=== PATIENT | female | born 1985 | race Caucasian/White ===

== ENCOUNTER 2017-03-24 08:23 | Outpatient (CLI) | payer OTHER ==
[2017-03-24 09:03] VITALS: BP 113/67
[2017-03-24 10:10] LABS: ADD MIUA? YES; BILIRUBIN NEGATIVE; BLOOD NEGATIVE; COLOR AMBER ((YELLOW)); GLUCOSE (STRIP) NEGATIVE; KETONES NEGATIVE; LEUKOCYTES MODERATE; NITRITE NEGATIVE; PROTEIN (STRIP) NEGATIVE; SPECIFIC GRAVITY 1.024 (1.000-1.030); UROBILINOGEN 0.2 MG/DL (0.2-1.0)
[2017-03-24 10:18] LABS: BACTERIA RARE /HPF; BUDDING YEAST 1+; EPITHELIAL CELLS 4+ /HPF; MUCUS 2+ /LPF; RED BLOOD CELLS 0-5 /HPF (0-5); UCUL ADDED? YES; WHITE BLOOD CELLS 30-40 /HPF (0-5)
[2017-03-24 10:25] LABS: AMPHETAMINE NEGATIVE (500 ng/mL); BARBITURATES NEGATIVE (200 ng/mL); BENZODIAZEPINES NEGATIVE (150 ng/mL); COCAINE NEGATIVE (150 ng/mL); INTERNAL CONTROLS VALID? YES; METHADONE NEGATIVE (200 ng/mL); METHAMPHETAMINE NEGATIVE (500 ng/mL); OPIATES (MORPHINE) NEGATIVE (100 ng/mL); OXYCODONE NEGATIVE (100 ng/mL); PHENCYCLIDINE NEGATIVE (25 ng/mL); PROPOXYPHENE NEGATIVE (300 ng/mL); THC CANNABINOIDS NEGATIVE (50 ng/mL); TRICYCLIC ANTIDEPRESSANTS NEGATIVE (300 ng/mL)
[2017-03-24 22:15] LABS: CANDIDA DNA PROBE NEGATIVE
[2017-03-24 22:16] LABS: GARDNERELLA DNA PROBE POSITIVE; INTERNAL CONTROL VALID? YES
== END 2017-03-24 12:30 | disposition home or self-care (01) ==
LOC: EME 08:23 → EDSTATUS 08:34 → LDRP-OP 08:41 → 2WEST 08:44
PROVIDERS: Advanced Practice Midwife
DX: O26.892 Other specified pregnancy related conditions, second trimester (principal); R10.30 Lower abdominal pain, unspecified; O99.512 Diseases of the respiratory system complicating pregnancy, second trimester; J45.909 Unspecified asthma, uncomplicated; O99.342 Other mental disorders complicating pregnancy, second trimester; F41.9 Anxiety disorder, unspecified; Z3A.21 21 weeks gestation of pregnancy
CPT/HCPCS: 81003; 87086; 87480; 87510; 87660; G0378; J7120

== ENCOUNTER 2017-06-21 15:11 | Emergency (ER) | payer OTHER ==
[~2017-06-21] VITALS: Ht 170.2 cm; Wt 71.8 kg
[2017-06-21 15:44] LABS: HEMOGLOBIN 11.8 G/DL (11.9-15.5); MCH 27.8 PG (29.0-34.0); MCHC 32.8 G/DL (30.0-36.0); MCV 84.7 FL (83-99); PLATELET COUNT 160 K/uL (156-360); RBC DIS.WIDTH-CV 12.6 % (11.8-14.6); RED BLOOD COUNT 4.25 M/uL (3.80-5.20); WHITE BLOOD COUNT 8.6 K/uL (4.1-10.2)
[2017-06-21 16:05] LABS: ALBUMIN 3.5 G/DL (3.2-4.8); CHLORIDE 106 MEQ/L (99-109); POTASSIUM 3.9 MEQ/L (3.7-5.4); SODIUM 137 MEQ/L (136-147); TOTAL BILIRUBIN 0.7 MG/DL (0.0-1.0)
[2017-06-21 16:11] LABS: ALKALINE PHOSPHATASE 133 IU/L (3-129); ALT (GPT) 9 IU/L (3-49); AST (GOT) 17 IU/L (2-34); CREATININE 0.5 MG/DL (0.6-1.3); GFR ESTIMATE (CALCULATED) > 59 mL/min/; GLUCOSE 88 mg/dL (70-99); TOTAL PROTEIN 6.3 G/DL (6.4-8.3); UREA NITROGEN (BUN) 6 mg/dL (9-23)
[2017-06-21 16:32] LABS: QUANTITATIVE HCG 35313.5 MIU/ML
[2017-06-21 18:17] LABS: LIPASE 7 U/L (1.0-51.0)
[2017-06-21] MEDS ORDERED: ZOFRAN4 MG SL (19:32)
[2017-06-21 20:04] VITALS: BP 102/90
== END 2017-06-21 20:05 | disposition home or self-care (01) ==
LOC: EME 15:11
DX: O21.2 Late vomiting of pregnancy (principal); O26.893 Other specified pregnancy related conditions, third trimester; R11.0 Nausea; Z3A.35 35 weeks gestation of pregnancy
CPT/HCPCS: 80053; 81003; 83690; 84702; 85027; 99281; 99284

== ENCOUNTER 2017-07-07 08:36 | Outpatient (CLI) | payer OTHER ==
[~2017-07-07] VITALS: Ht 165.1 cm; Wt 74.1 kg
[~2017-07-07 08:36] MED LIST: ZOFRAN4 MG SL
[2017-07-07 09:20] LABS: BASOPHIL (%) 0.2 % (0-1); EOSINOPHIL (%) 1.1 % (0-5); EOSINOPHIL COUNT 0.1 K/uL (0-0.3); HEMATOCRIT 30.5 % (36.0-46.0); HEMOGLOBIN 9.9 G/DL (11.9-15.5); IMMATURE GRANULOCYTE (%) 0.5 % (0.0-0.7); LYMPHOCYTE COUNT 0.7 K/uL (1.0-2.8); MCH 26.6 PG (29.0-34.0); MCHC 32.5 G/DL (30.0-36.0); MONOCYTE (%) 3.8 % (3-12); MONOCYTE COUNT 0.2 K/uL (0-0.8); NEUTROPHIL (%) 82.4 % (45-76); PLATELET COUNT 149 K/uL (156-360); RBC DIS.WIDTH-SD 39.2 % (39-53); RED BLOOD COUNT 3.72 M/uL (3.80-5.20); WHITE BLOOD COUNT 6.1 K/uL (4.1-10.2)
[2017-07-07 09:36] LABS: CHLORIDE 109 mEq/L (99-109); POTASSIUM 3.3 mEq/L (3.7-5.4); SODIUM 140 mEq/L (136-147)
[2017-07-07 09:38] LABS: GLUCOSE 91 mg/dL (70-99)
[2017-07-07 09:42] LABS: CREATININE 0.6 mg/dL (0.6-1.3); GFR ESTIMATE (CALCULATED) > 59 mL/min/; UREA NITROGEN (BUN) 6 mg/dL (9-23)
[2017-07-07 11:03] LABS: APPEARANCE CLOUDY ((CLEAR)); BILIRUBIN NEGATIVE; BLOOD NEGATIVE; COLOR YELLOW ((YELLOW)); GLUCOSE (STRIP) NEGATIVE; KETONES NEGATIVE; LEUKOCYTES LARGE; NITRITE NEGATIVE; PROTEIN (STRIP) 30; SPECIFIC GRAVITY 1.021 (1.000-1.030); UROBILINOGEN 0.2 MG/DL (0.2-1.0)
[2017-07-07 11:14] LABS: BACTERIA RARE /HPF; CALCIUM OXALATE CRYSTALS 3+ /HPF; EPITHELIAL CELLS 2+ /HPF; HYALINE CASTS 0-5 /LPF; MUCUS 1+ /LPF; RED BLOOD CELLS 0-5 /HPF (0-5); UCUL ADDED? YES; WHITE BLOOD CELLS 20-30 /HPF (0-5)
[2017-07-07] MEDS ORDERED: MACROBID100 MG PO (11:45)
[2017-07-07] MEDS ORDERED: ZOFRAN4 MG PO (11:45)
[2017-07-07 12:17] VITALS: BP 113/65
[2017-07-07] MEDS ORDERED: COMBIVENT RESPIM4 GM IH (12:29)
[2017-07-07] MEDS ORDERED: VENTOLIN HFA18 GM IH (12:30)
[2017-07-07] MEDS ORDERED: EXPECTA PRENAT1 EACH PO (12:30)
[2017-07-07] MEDS ORDERED: ATARAX,VISTARIL50 MG PO (12:32)
[2017-07-07 18:09] LABS: CANDIDA DNA PROBE POSITIVE; GARDNERELLA DNA PROBE NEGATIVE; TRICHOMONAS DNA PROBE NEGATIVE
== END 2017-07-07 15:13 | disposition home or self-care (01) ==
LOC: LDRP-OP 08:36 → EME 08:36 → EDSTATUS 12:12 → 2WEST 12:14
PROVIDERS: Advanced Practice Midwife; Emergency Medicine
DX: O47.03 False labor before 37 completed weeks of gestation, third trimester (principal); O99.283 Endocrine, nutritional and metabolic diseases complicating pregnancy, third trimester; E87.6 Hypokalemia; O23.43 Unspecified infection of urinary tract in pregnancy, third trimester; O99.513 Diseases of the respiratory system complicating pregnancy, third trimester; J45.909 Unspecified asthma, uncomplicated; O99.343 Other mental disorders complicating pregnancy, third trimester; F41.9 Anxiety disorder, unspecified; Z3A.36 36 weeks gestation of pregnancy
CPT/HCPCS: 59025; 80048; 81003; 85025; 87086; 87480; 87510; 87660; G0378; J2405; J7030; J7120

== ENCOUNTER 2017-07-19 20:59 | Outpatient (CLI) | payer OTHER ==
[~2017-07-19] VITALS: Ht 165.1 cm; Wt 75.0 kg
[~2017-07-19 20:59] MED LIST changes: +ATARAX,VISTARIL50 MG PO; +COMBIVENT RESPIM4 GM IH; +EXPECTA PRENAT1 EACH PO; +MACROBID100 MG PO; +VENTOLIN HFA18 GM IH; +ZOFRAN4 MG PO
[2017-07-19 21:18] VITALS: BP 128/76
[2017-07-19 23:07] VITALS: BP 145/74
== END 2017-07-20 00:10 | disposition home or self-care (01) ==
LOC: LDRP-OP → 2WEST 21:00 → LDRP-OP 08-30 12:01
DX: O47.1 False labor at or after 37 completed weeks of gestation (principal); O99.343 Other mental disorders complicating pregnancy, third trimester; F41.1 Generalized anxiety disorder; Z3A.39 39 weeks gestation of pregnancy
CPT/HCPCS: 59025; G0378

== ENCOUNTER 2017-07-23 05:31 | Inpatient (IN) | payer OTHER ==
[~2017-07-23] VITALS: Ht 162.6 cm; Wt 76.2 kg
[2017-07-23] VITALS (21 sets, daily range): BP systolic 92–139; BP diastolic 51–80
[2017-07-23 09:45] LABS: BASOPHIL (%) 0.2 % (0-1); EOSINOPHIL (%) 0.4 % (0-5); HEMATOCRIT 32.4 % (36.0-46.0); HEMOGLOBIN 10.2 G/DL (11.9-15.5); IMMATURE GRANULOCYTE (%) 0.4 % (0.0-0.7); LYMPHOCYTE (%) 15.8 % (15-42); LYMPHOCYTE COUNT 0.9 K/uL (1.0-2.8); MCHC 31.5 G/DL (30.0-36.0); MCV 82.4 FL (83-99); MONOCYTE (%) 3.9 % (3-12); MONOCYTE COUNT 0.2 K/uL (0-0.8); NEUTROPHIL (%) 79.3 % (45-76); NEUTROPHIL COUNT 4.5 K/uL (1.8-6.4); PLATELET COUNT 166 K/uL (156-360); RBC DIS.WIDTH-CV 14.2 % (11.8-14.6); RBC DIS.WIDTH-SD 41.6 % (39-53); RED BLOOD COUNT 3.93 M/uL (3.80-5.20); WHITE BLOOD COUNT 5.6 K/uL (4.1-10.2)
[2017-07-23 10:15] LABS: ALBUMIN 3.5 G/DL (3.2-4.8); CHLORIDE 106 MEQ/L (99-109); POTASSIUM 3.5 MEQ/L (3.7-5.4); SODIUM 139 MEQ/L (136-147); TOTAL BILIRUBIN 0.5 MG/DL (0.0-1.0)
[2017-07-23 10:20] LABS: ALKALINE PHOSPHATASE 142 IU/L (3-129); ALT (GPT) 7 IU/L (3-49); AST (GOT) 15 IU/L (2-34); CREATININE 0.6 MG/DL (0.6-1.3); GFR ESTIMATE (CALCULATED) > 59 mL/min/; GLUCOSE 94 mg/dL (70-99); TOTAL PROTEIN 5.7 G/DL (6.4-8.3); UREA NITROGEN (BUN) 7 mg/dL (9-23)
[2017-07-24 06:12] LABS: BASOPHIL (%) 0.2 % (0-1); EOSINOPHIL (%) 0.6 % (0-5); HEMATOCRIT 28.4 % (36.0-46.0); HEMOGLOBIN 8.9 G/DL (11.9-15.5); IMMATURE GRANULOCYTE (%) 0.5 % (0.0-0.7); LYMPHOCYTE (%) 18.1 % (15-42); LYMPHOCYTE COUNT 1.2 K/uL (1.0-2.8); MCH 25.9 PG (29.0-34.0); MCHC 31.3 G/DL (30.0-36.0); MCV 82.6 FL (83-99); MONOCYTE (%) 5.8 % (3-12); MONOCYTE COUNT 0.4 K/uL (0-0.8); NEUTROPHIL (%) 74.8 % (45-76); NEUTROPHIL COUNT 4.8 K/uL (1.8-6.4); PLATELET COUNT 148 K/uL (156-360); RBC DIS.WIDTH-CV 14.3 % (11.8-14.6); RBC DIS.WIDTH-SD 41.9 % (39-53); RED BLOOD COUNT 3.44 M/uL (3.80-5.20); WHITE BLOOD COUNT 6.4 K/uL (4.1-10.2)
[2017-07-24 07:05] VITALS: BP 129/59
[2017-07-24 14:58] VITALS: BP 123/65
[2017-07-25 07:19] VITALS: BP 123/58
[2017-07-25] MEDS ORDERED: IBUPROFEN800 MG PO (09:30)
[2017-07-25] MEDS ORDERED: HEMOCYTE324 MG PO (09:30)
[2017-07-25] MEDS ORDERED: DOCUSATE SODIU100 MG PO (09:30)
== END 2017-07-25 11:27 | disposition home or self-care (01) | DRG 775 ==
LOC: LDRP-OP 05:31 → 2WEST 05:32 → LDRP-OP 08-30 00:29
PROVIDERS: Advanced Practice Midwife; Obstetrics & Gynecology
DX: O99.344 Other mental disorders complicating childbirth (principal); F33.9 Major depressive disorder, recurrent, unspecified; F40.10 Social phobia, unspecified; O99.52 Diseases of the respiratory system complicating childbirth; Z37.0 Single live birth; J45.909 Unspecified asthma, uncomplicated; D50.9 Iron deficiency anemia, unspecified; O99.02 Anemia complicating childbirth; O70.0 First degree perineal laceration during delivery; F41.1 Generalized anxiety disorder; L29.9 Pruritus, unspecified; O99.72 Diseases of the skin and subcutaneous tissue complicating childbirth; E55.9 Vitamin D deficiency, unspecified; Z79.51 Long term (current) use of inhaled steroids
CPT/HCPCS: 80053; 82239 90; 85025; C1755; J3010; J7120